=== PATIENT | female | born 1990 | race Asian ===

== ENCOUNTER 2018-05-30 07:00 | Inpatient (IN) | payer OTHER ==
[~2018-05-30] VITALS: Ht 165.1 cm; Wt 91.1 kg
[~2018-05-30 07:00] MED LIST: EPHEDrine SULFATE 50 MG/5 ML SYG ONE
[2018-05-30 07:34] VITALS: Ht 165.1 cm; Wt 91.1 kg
[2018-05-30] MEDS ORDERED: LACTATED RINGER'S 1,000 ML IV SCH (07:35)
[2018-05-30] MEDS ORDERED: OXYTOCIN 30 UNITS/LR 500 ML IV PRN ×2 (08:00→12:30)
[2018-05-30] MEDS ORDERED: CEFAZOLIN 2 GM/50 ML (PMX) 50 ML IVPB SCH ×2 (08:00→12:30)
[2018-05-30] MEDS ORDERED: OXYTOCIN 30 UNITS/LR 500 ML IV SCH ×2 (08:00→12:05)
[2018-05-30] MEDS ORDERED: CARBOPROST 250 MCG INJ IM PRN ×2 (08:00→12:30)
[2018-05-30] MEDS ORDERED: METHYLERGONOVINE 0.2 MG INJ IM PRN ×2 (08:00→12:30)
[2018-05-30] MEDS ORDERED: MISOPROSTOL 200 MCG TAB PR PRN ×2 (08:00→12:30)
[2018-05-30 08:15] VITALS: BP 122/84; RESP 16
--- NOTE | 2018-05-30 09:08 | PREOPHP ---
DATE OF ADMISSION: 05/30/2018 HISTORY OF PRESENT ILLNESS: The patient is a 27-year-old 2, para 1, EDC 06/03/2018, intraute rine at 39 weeks gestational age, admitted today for elective repeat delivery. Sh israel denies any contractions, vaginal bleeding, or discharge. Her care took place with Dr. Hilario malhotra. PAST MEDICAL HISTORY: None. MEDICATIONS: vitamins. PAST SURGICAL HISTORY: x1 previous section. OBSTETRIC HISTORY: x1 previous section. GYNECOLOGIC HISTORY: 10, regular 3 to 4 days. She denies any sexually transmitted infections. Sexu ally active with 1 partner. SOCIAL HISTORY: She denies any smoking, drugs or alcohol. FAMILY HISTORY: None. REVIEW OF SYSTEMS: All within normal except history of present illness. PHYSICAL EXAMINATION: HEENT: Within normal. LUNGS: CTA bilateral. CARDIOVASCULAR: S1, S2, regular rhythm. ABDOMEN: Gravid, nontender. Negative CVA bilateral. EXTREMITIES: Negative edema. No calf tenderness. PELVIC: Vaginal exam deferred. heart tracing category 1. Tocometer, occasional contractions. ASSESSMENT: Intrauterine at 39 weeks' gestational age, previous section x1, margie es elective repeat delivery, declined . PLAN: Consent for repeat delivery. Risks, benefits and alternatives were explained. All q uestions were answered. Dictated By: NATASHA EDWARDS/ARYAN Conf#: [id number] DID#: [id number] CC: NATASHA BERNAL MD;*EndCC*
--- NOTE | 2018-05-30 10:55 | PREAC ---
Date/Time of Note Date/Time of Note DATE: 05/30/18 TIME: 10:54 Anesthesia Eval and Record Evaluation Time Pre-Procedure Interview DATE: 05/30/18 TIME: 10:54 Age 27 Sex female NPO: 8 hrs Preoperative diagnosis previous c section Planned procedure repeat c section Past Medical History Past Medical History: None Surgery & Anesthesia Issues No known issue Meds Anticoagulation: No Beta Jose within 24 hr: No Reason Beta Jose not given: Pt. not on B-Jose Current Medications Lactated Ringer's 1,000 ml @ 125 mls/hr Q8H IV Last administered on 05/30/18at 08:00; Admin Dose 125 MLS/HR; Start 05/30/18 at 07:35 Cefazolin Sodium/ Dextrose 50 ml @ 100 mls/hr ONCE IVPB ; Start 05/30/18 at 08:00 Oxytocin/Lactated Ringer's 500 ml @ 125 mls/hr POST IV ; Start 05/30/18 at 08:00 Oxytocin/Lactated Ringer's 500 ml @ 0 mls/hr ONCE PRN IV .VAGINAL BLEEDING; Start 05/30/18 at 08:00 Methylergonovine Maleate (Methergine) 0.2 mg ONCE PRN IM .VAGINAL BLEEDING; Start 05/30/18 at 08:00; Stop 05/30/18 at 23:45 Carboprost Tromethamine (Hemabate) 250 mcg ONCE PRN IM .VAGINAL BLEEDING; Start 05/30/18 at 08:00; Stop 05/30/18 at 23:45 Misoprostol (Cytotec) 1,000 mcg ONCE PRN ME .VAGINAL BLEEDING; Start 05/30/18 at 08:00; Stop 05/30/18 at 23:45 Meds reviewed: Yes Allergies Coded Allergies: No Known Drug Allergies (Verified Allergy, Unknown, 05/30/18) Allergies Reviewed: Yes Labs/Studies Labs Reviewed: Reviewed by anesthesiologist Result Diagram: 05/30/18 0800 Laboratory Tests 05/30/18 08:00 Blood Bank Test 05/30/18 08:00 Antibody Screen NEGATIVE Blood Type B POSITIVE Rh Immune Globulin Candidate NO test: N/A Pre-procedure Exam Airway: Adequate mouth opening, Adequate thyromental dist Mallampati: Mallampati III Teeth: Normal Lung: Normal Heart: Normal ASA Physical Status ASA physical status: 2 Emergency: None Pre-operative Attestations Prior to commencing anesthesia and surgery, the patient was re-evaluated, there was verification of: *The patient's identity *The results of appropriate recent lab work and preoperative vital signs *The above evaluation not changing prior to induction *Anesthetic plan, risk benefits, alternative and complications discussed with patient/family; questions answered; patient/family understands, accepts and wishes to proceed. MARKY GRANDE DO May 30, 2018 10:55
[2018-05-30] MEDS ORDERED: ZOLPIDEM 5 MG TAB PO PRN (11:00)
[2018-05-30] MEDS ORDERED: NALOXONE (0.4 MG/ML) INJ IV PRN (11:00)
[2018-05-30] MEDS ORDERED: DIPHENHYDRAMINE 50 MG INJ IV PRN (11:00)
[2018-05-30] MEDS ORDERED: KETOROLAC 30 MG INJ IV PRN (11:00)
[2018-05-30] MEDS ORDERED: ONDANSETRON 4 MG INJ IV PRN (11:00)
[2018-05-30] MEDS ORDERED: HYDROmorphONE 0.5 MG/0.5 ML SYG IV PRN ×2 (11:00)
[2018-05-30] MEDS ORDERED: FENTAnyl 50 MCG/ML VIAL ONE (11:03)
[2018-05-30] MEDS ORDERED: morphine SULFATE/PF (10 MG/10 ML) INJ ONE (11:03)
[2018-05-30] MEDS ORDERED: ONDANSETRON 4 MG INJ ONE (11:15)
[2018-05-30] MEDS ORDERED: DEXAMETHASONE 4 MG/ML 1 ML INJ ONE (11:15)
[2018-05-30] MEDS ORDERED: OXYTOCIN 30 UNITS/LR 500 ML IV ONE (11:15)
[2018-05-30] MEDS ORDERED: FAMOTIDINE 20 MG INJ ONE (11:18)
[2018-05-30] MEDS ORDERED: METOCLOPRAMIDE 10 MG INJ ONE (11:18)
[2018-05-30] MEDS ORDERED: PHENYLephrine (100 MCG/ML) 5ML SYG ONE (11:20)
--- NOTE | 2018-05-30 12:03 | PAC ---
Date/Time of Note Date/Time of Note DATE: 05/30/18 TIME: 12:03 Post-Anesthesia Notes Post-Anesthesia Note Last documented vital signs 1200 120/65 65 98% 15 Activity: WNL Respiratory function: WNL Cardiovascular function: WNL Mental status: Baseline Pain reasonably controlled: Yes Hydration appropriate: Yes Nausea/Vomiting absent: Yes MARKY GRANDE DO May 30, 2018 12:03
--- NOTE | 2018-05-30 12:05 | OPPN ---
Date/Time of Note Date/Time of Note DATE: 05/30/18 TIME: 12:02 Operative Report Planned Procedure Procedure date May 30, 2018 Procedure(s) repeat low transverse CD Performed by see signature line Disability Representative: ELIECER STAUFFER M.D. 2nd Disability Representative none Anesthesiologist: MARKY GRANDE DO Pre-procedure diagnosis iup at 39wks ga, previous CD, desires elective repeat CD, decline [id number] Anesthesia Type: Marex1p spinal Post-Procedure Post-procedure diagnosis same Findings a viable male 9/9 weight 8lbs 2 oz, normal uterus tubes and ovaries. Estimated Blood Loss: 500 - 600 mls (500) Specimen(s) none Grafts/Implant(s) none Complication(s) none NATASHA BERNAL MD May 30, 2018 12:05
[2018-05-30] MEDS ORDERED: NACL 0.9% 3 ML SYG IV SCH (12:30)
[2018-05-30] MEDS ORDERED: LANOLIN HPA 1 PKT TOP PRN (12:30)
[2018-05-30] MEDS ORDERED: OXYCODONE/ACETAMINOPHEN (5/325) TAB PO PRN ×2 (12:30)
[2018-05-30 15:30] VITALS: BP 114/57; RESP 18
[2018-05-30 17:00] VITALS: BP 114/57; PULSE 85; RESP 18
[2018-05-30] MEDS: CEFAZOLIN 2 GM/50 ML (PMX) 50 ML IVPB SCH (17:06)
[2018-05-30 19:20] VITALS: BP 116/60; PULSE 85; RESP 19
[2018-05-30] MEDS: SENNA/DOCUSATE NA (8.6MG/50MG) TAB PO SCH (21:35)
[2018-05-30 23:20] VITALS: BP 108/55; PULSE 79; RESP 19
[2018-05-31] MEDS: CEFAZOLIN 2 GM/50 ML (PMX) 50 ML IVPB SCH ×2 (01:04→09:12)
[2018-05-31 03:20] VITALS: BP 110/53; PULSE 83; RESP 18
[2018-05-31] MEDS: LACTATED RINGER'S 1,000 ML IV SCH ×2 (05:39→09:30)
[2018-05-31 08:00] VITALS: BP 92/48; PULSE 79; RESP 17
[2018-05-31] MEDS: SENNA/DOCUSATE NA (8.6MG/50MG) TAB PO SCH ×2 (09:12→21:02)
--- NOTE | 2018-05-31 09:24 | OPR ---
DATE OF OPERATION: 05/30/2018 PREOPERATIVE DIAGNOSIS: Intrauterine at 39 weeks gestational age, previous delivery, desires elective repeat delivery, declined . OPERATION PERFORMED: Repeat low transverse delivery. SURGEON: Joe Barth MD COMPLIANCE PROFESSIONAL: Sebastian Gallegos MD ANESTHESIOLOGY: Davis Black MD ANESTHESIA: Spinal. COMPLICATIONS: None. ESTIMATED BLOOD LOSS: 500 mL. FINDINGS: A viable male, 9 and 9 respectively at 1 and 5 minutes, weight 8 pounds 2 ounces. Normal uterus, tubes and ovaries. DESCRIPTION OF PROCEDURE: After explaining the risks, benefits and alternatives, the patient had consent signed in chart, the patient was taken to the operating room where spinal anesthesia was found to be adequate. She was then prepared and draped in normal sterile fashion in a dorsal supine position with a leftward tilt. A Pfannenstiel skin incision was then made with a scalpel and carried to the underlying fascia. The fascia was incised in the midline. Incision was extended laterally with Pryor scissors. The superior aspect of the fascial incision was grasped with curved clamps, elevated and the underlying rectus muscles dissected off bluntly. Attention was then turned to the inferior aspect of incision, which in similar fashion was grasped, tented up with curved clamps and the rectus muscles dissected off bluntly. The rectus muscles in midline, peritoneum identified. The rectus muscles were then in midline, peritoneum identified, tented up sharply with Metzenbaum scissors. The peritoneal incision was extended superiorly and inferior with good visualization of the bladder. The bladder blade was then inserted and the vesicouterine identified, grasped with pickups and entered sharply with Metzenbaum scissors. This incision was extended laterally and bladder flap created digitally. The bladder blade was then reinserted and the lower segment incised in transverse fashion with a scalpel. The uterine incision was extended laterally. The bladder blade was removed and the infant delivered atraumatically. The nose and mouth were suctioned and cord clamped and cut. The infant was handed off to awaiting hospitality recruiter. The placenta was then removed. The uterus was exteriorized and cleared of all clots and debris. The uterine incision was repaired with 1-0 chromic in a running locked fashion. A second layer of same suture was used for imbrication and obtained excellent hemostasis. The uterus was returned to the abdomen. The gutters were cleared of all clots. The peritoneum and rectus abdominis muscles were reapproximated with 3-0 Vicryl in interrupted fashion. The fascia was reapproximated with 0 Vicryl in a running fashion. The subcutaneous tissue was reapproximated with 2- 0 plain gut in a running fashion. The skin was closed with absorbable eugene. The patient tolerated the procedure well. Sponge, lap, needle counts correct. The patient was taken to recovery room in stable condition. Dictated By: JOE EDWARDS/ARYAN Conf#: [id number] DID#: [id number] MAIK
[2018-05-31 15:36] VITALS: BP 97/62; PULSE 79; RESP 20
[2018-05-31] MEDS: IBUPROFEN 600 MG TAB PO SCH (18:55)
--- NOTE | 2018-05-31 19:01 | QN ---
Documentation Comment progress note pod 1 patient seen and evaluated no complaints vs stable afebrile ab soft nt c/d/i no distention extremity no edema no calf tenderness a/ sp cd pod 1 stable afebrile p/ encourage ambulation NATASHA BERNAL MD May 31, 2018 19:01
[2018-05-31 19:40] VITALS: BP 106/55; PULSE 71; RESP 19
[2018-06-01 03:40] VITALS: BP 114/63; PULSE 72; RESP 18
[2018-06-01] MEDS: IBUPROFEN 600 MG TAB PO SCH ×5 (05:41→23:49)
[2018-06-01 07:35] VITALS: BP 106/65; PULSE 67; RESP 20
[2018-06-01] MEDS: SENNA/DOCUSATE NA (8.6MG/50MG) TAB PO SCH ×2 (08:47→22:09)
[2018-06-01 15:53] VITALS: BP 109/76; PULSE 80; RESP 18
--- NOTE | 2018-06-01 19:20 | QN ---
Documentation Comment progress note pod 2 patient seen and evaluated no complaints vs stable afebrile ab soft nt dressing clean/dry extremity no edema no calf tenderness a/ sp cd pod 2 stable afebrile p/ encourage ambulation discharge home tomorrow NATASHA BERNAL MD Jun 01, 2018 19:20
--- NOTE | 2018-06-01 19:21 | PD.PPDC ---
PRINTING MACHINIST Discharge Instruction Condition Yqujy0Ur Patient Condition: Ehpjg2c Good Diet Kafrx9Ic Diet: Scftr8p Resume Regular Diet Activity/Restrictions [id number] Activity: Rvaem9z Normal Activity May Shower Qsqru5Ds Restrictions: Nzavr5k No Exercising No Lifting No Driving No Sexual Activity Nothing in the Vagina No Leach No Tampons, douche Wound/Drain Care Instructions [id number] Wound/Drain Care Instructions: Eymzj0c Wash with soap and water Keep clean and dry Follow-up Follow-up with Physician: 2, Week/Weeks Return to clinic for [id number] SENIOR MAINFRAME DEVELOPER Instructions: Nerez2h Fever greater than 101 Chills Worsening abdominal pain Excessive Vaginal Bleeding More than 2 pads per hour Unable to tolerate diet Actac3Mr OB Instructions: Ojzvg8c Breast Tenderness Depression Blurried Vision Headache [id number] Surgical Instructions: Txeea2s Incisional Drainage Incisional Redness NATASHA BERNAL MD Jun 01, 2018 19:21
[2018-06-01 19:25] VITALS: BP 104/56; PULSE 69; RESP 19
--- NOTE | 2018-06-01 20:12 | DS ---
DATE OF ADMISSION: 05/30/2018 DATE OF DISCHARGE: 06/02/2018 PRIMARY DIAGNOSIS: Intrauterine at 39 weeks gestational age, previous , desires e lective repeat delivery, declined . PROCEDURE: Repeat low transverse delivery. CONDITION ON DISCHARGE: Stable. ACTIVITY: None per vagina, no heavy lifting x6 weeks. DIET: Regular. MEDICATIONS ON DISCHARGE: 1. Motrin. 2. Iron. 3. Colace. DISCHARGE SUMMARY: The patient underwent a repeat low transverse delivery on 05/30/2018. S he had a viable male, 9 and 9 respectively at 1 and 5 minutes, weight 8 pounds 2 ounces. She h ad an uneventful postop day 1 and 2. She was discharged on postop day 3. Her incision is clean, dry , intact. She is ambulating, tolerating diet, positive flatulence, positive bowel sounds. She will follow up in the clinic in 2 weeks for /postop care. Dictated By: NATASHA EDWARDS/ARYAN Conf#: [id number] DID#: [id number]
[2018-06-02 03:25] VITALS: BP 103/52; PULSE 67; RESP 18
[2018-06-02] MEDS: IBUPROFEN 600 MG TAB PO SCH ×2 (05:40→11:15)
[2018-06-02] MEDS: SENNA/DOCUSATE NA (8.6MG/50MG) TAB PO SCH (11:15)
== END 2018-06-02 18:00 | disposition home or self-care (01) | DRG 788 ==
LOC: L-D 07:00 → PP1 15:24 → EDSTATUS 06-03 07:13
PROVIDERS: ADMIT Obstetrics & Gynecology; ATTEND Obstetrics & Gynecology
PROC: 10D00Z1 Extraction of Products of Conception, Low, Open Approach (ICD-10-PCS; principal; 2018-05-30 09:00)
DX: O34.219 Maternal care for unspecified type scar from previous cesarean delivery (principal); Z3A.39 39 weeks gestation of pregnancy; Z37.0 Single live birth
CPT/HCPCS: 85025; 85610; 85730; 86592; 86850; 86900; 86901; 99464; J0690; J1100; J2274; J2370; J2405; J2590; J2765; J3010; J7120